=== PATIENT | female | born 1995 ===

== ENCOUNTER 2024-09-11 08:47 | Outpatient (AMB) | payer BC, MEDICAID, SELFPAY ==
--- NOTE | 2024-09-11 08:59 | GYNCLNT_ITS ---
Vital Signs 09/11/24 09:01 Height 1.65 m Height Method Stated Weight 111.811 kg Weight Measurement Method Standing Scale BMI 41.0 BP 114/82 Blood Pressure Source Automatic Cuff Blood Pressure Location Left Upper Arm Position Sitting Respiration 16 Pulse 90 Pulse Source Monitor Temp 97.8 F Temp Source Oral Pulse Oximetry (%) 96 Oxygen Delivery Method Room Air Allergies/Home Meds Allergies & Medications Allergies No Known Allergies Allergy (Verified 09/11/24 09:02) Medication Reconciliation No Known Home Medications 09/11/24 [History Confirmed 09/11/24] Intake Visit Data Collection New Patient or Established: Established Patient (seen at [facility] within 3 years) Reason for Visit:: Menstrual period concerns Seen by Clinical Staff ONLY (RN/MA): No Automotive Finance Manager Required: No Do You Feel Safe at Home: Yes Authorities Contacted: N/A PCP or OBGYN visit in last 3 months: No Hx Now: No Are you currently on any form of Control: No Last menstrual period: 05/22/24 Pain Present Currently: No Pain Scale Used: Rivera-Bustamante/Numerical Pain scale:: 0 Smoking Status Smoking Status: Never smoker Questionnaires Covid-19 Vaccine Questionnaire Has patient been vacinated for Covid-19 Have you been vacinated for Covid-19: No PHQ-9 PHQ-2 Over the last 2 weeks, how often have you been bothered by any of the following problems? 1. Little interest or pleasure in doing things: not at all 2. Feeling down, depressed, or hopeless: not at all Total score: 0 Depression screen completed yes Social History Living Situation History Marital Status: Lives With: Family Housing: House Tobacco History Smoking Status: Never smoker Alcohol History Alcohol Intake: Never Substance Use History Substance Use: no Domestic Abuse History Do You Feel Safe at Home: Yes Past Medical History Past Medical History Have you ever been diagnosed with any of the following: Neurological Problems Cerebrovascular Accident (CVA): No Transient Ischemic Attacks (TIA): No Dementia: No Alzheimer's Disease: No Parkinson's Disease: No Brain Tumor: No Meningitis: No Seizures: No Epilepsy: No Multiple Sclerosis: No Cerebral Palsy: No Amyotrophic Lateral Sclerosis (ALS/Amparo Gehrig's): No Guillain-Boulder Syndrome: No Spina Bifida: No Paralysis: No Peripheral Neuropathy: No Boston's Palsy: No Subdural Hematoma: No Migraine: No Head Trauma: No Spinal Cord Injury: No Traumatic Brain Injury: No Cardiology Problems Myocardial Infarction: No Cardiac Arrhythmia: No Atrial Fibrillation: No Angina: No Heart Murmur: No Coronary Artery Disease: No Atherosclerotic Heart Disease: No Peripheral Vascular Disease: No Hypercholesterolemia: No Aneurysm: No Congestive Heart Failure: No Congenital Heart Disease: No Valvular Heart Disease: No Rheumatic Fever: No Cardiomyopathy: No Edema: No Pericarditis: No Cellulitis: No Deep Vein Thrombosis: No Hypertension: No Hypotension: No Varicose Veins: No Respiratory Problems Chronic Obstructive Pulmonary Disease (COPD): No Asthma: No Stomache/Intestinal Problems Liver Cancer: No Hepatitis: No Cirrhosis: No Pancreatic Cancer: No Genital/Urinary Problems Chronic Kidney Disease: No Renal Disease: No Kidney Stones: No Reproductive Problems Breast Cancer: No Endometriosis: No Musculoskeletal Problems Muscular Dystrophy: No Myasthenia Gravis: No Head,Eye,Nose,Throat Problems Cataracts: No Glaucoma: No Endocrine Problems Diabetes Mellitus Type 1: No Diabetes Mellitus Type 2: No Hypoglycemia: No Greenwood's Syndrome: No Umair's Disease: No Hyperthyroidism: No Hypothyroidism: No Thyroid Cancer: No Parathyroid Disease: No Pituitary Disease: No Systemic Lupus Erythematosus: No Syndrome of Inappropriate Antidiuretic Hormone: No Adrenal Disease: No Graves' Disease: No Blood Problems Anemia: No Leukemia: No Other Problems Hospitalization: No Autoimmune Disease: No Surgical History Angioplasty: No Appendectomy: No History of Present Illness HPI Narrative Patient is a 29-year-old -1-0-1 status post primary at 35 weeks and 2022 for arrest of dilatation at 3 cm. Patient states she came in with premature rupture of membranes we tried to induce her at [facility] for greater than 10 hours she never made progress past 3 cm and a primary was called. Patient had an IUD in place prior to that and was removed and got very quickly she had another ParaGard placed after which was removed in October 2023. Patient is been unable to get since October. Her last menstrual period was April 2024. Patient desires . She has the same partner. No new medical history. She has not had a thyroid or lab work in a while. Patient had an ultrasound last in April 2024. 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 Review of Systems Constitutional Constitutional: Reports system reviewed and no additional complaints, except as documented Comments: No abnormal uterine bleeding no pelvic pain. No abnormal discharge. Irregular menses as above. Patient does report weight gain since her last baby was delivered. Current BMI is 41. Patient states she is prediabetic. Exam Narrative Physical exam: Patient states she had a Pap within the last year. Pelvic exam and Pap smear deferred today as this is a counseling visit. General Limitations: no limitations General Appearance: alert, in no apparent distress, cooperative, healthy appearing and well groomed ENT ENT exam: Present other (Thyroid not enlarged not tender) Neck Neck exam: Present normal inspection and trachea midline Resp Respiratory exam: Present normal lung sounds bilaterally Card Cardiovascular exam: Present regular rate and normal rhythm Assessment & Plan Diagnosis / Problem List (1) Infertility associated with anovulation: Status: Acute Additional Assessment Patient has irregular menses most likely due to anovulation. Patient desires until declines control. She has taken a recent test and it is negative. Additional Plan Plan to check a pelvic ultrasound, check lab work including hemoglobin A1c LH FSH ratio fasting insulin glucose ratio and a prolactin. Will check a test. Then the plan will be to withdraw the patient on Provera. Weight loss was encouraged. Patient might consider Ozempic. Another option to discuss discussed with the patient today would be Provera withdrawal metformin and Clomid. Patient understands she will need a repeat if she does get . She also understands that if she is on the same this will not be continued during as it is not studied well. We will call the patient for follow-up once her lab work and ultrasound are back Office Procedures [facility] Level of Care Nursing/Assessment Patient Status: Established Patient Nursing Assessment/Reassessment: Medication Reconciliation, Update PMH in EMR and Vital Signs Coordination of Care: Complex Care and Chronic Disease 1-5, Consent,records obtained, informed consent, Education Simp Pt/Fam, Lab and Imaging orders and Staff clarify orders Established Patient Charge Established Patient Point Assignment: 100 Established Patient Point Charge: Level 3 (80-115)
[2024-09-11 09:01] VITALS: BP 114/82; PULSE 90; RESP 16; TEMP 36.6; O2SAT 96; BMI 41.0
--- NOTE | 2024-09-11 10:56 | AMB.GYNCLNOT ---
Vital Signs 09/11/24 09:01 09/11/24 10:58 Height 1.65 m Height Method Stated Weight 111.811 kg Weight Measurement Method Standing Scale BMI 41.0 BP 114/82 114/82 Blood Pressure Source Automatic Cuff Blood Pressure Location Left Upper Arm Position Sitting Respiration 16 16 Pulse 90 90 Pulse Source Monitor Temp 97.8 F 97.8 F Temp Source Oral Pulse Oximetry (%) 96 96 Oxygen Delivery Method Room Air Allergies/Home Meds Allergies & Medications Allergies No Known Allergies Allergy (Verified 09/11/24 09:02) Medication Reconciliation No Known Home Medications 09/11/24 [History Confirmed 09/11/24] Intake Visit Data Collection Do You Feel Safe at Home: Yes Smoking Status Smoking Status: Never smoker Questionnaires Covid-19 Vaccine Questionnaire Has patient been vacinated for Covid-19 Have you been vacinated for Covid-19: No PHQ-9 PHQ-2 Over the last 2 weeks, how often have you been bothered by any of the following problems? 1. Little interest or pleasure in doing things: not at all Social History Living Situation History Marital Status: Lives With: Family Housing: House Tobacco History Smoking Status: Never smoker Alcohol History Alcohol Intake: Never Substance Use History Substance Use: no Domestic Abuse History Do You Feel Safe at Home: Yes Past Medical History Past Medical History Have you ever been diagnosed with any of the following: Neurological Problems Cerebrovascular Accident (CVA): No Transient Ischemic Attacks (TIA): No Dementia: No Alzheimer's Disease: No Parkinson's Disease: No Brain Tumor: No Meningitis: No Seizures: No Epilepsy: No Multiple Sclerosis: No Cerebral Palsy: No Amyotrophic Lateral Sclerosis (ALS/Amparo Gehrig's): No Guillain-Bulan Syndrome: No Spina Bifida: No Paralysis: No Peripheral Neuropathy: No Boston's Palsy: No Subdural Hematoma: No Migraine: No Head Trauma: No Spinal Cord Injury: No Traumatic Brain Injury: No Cardiology Problems Myocardial Infarction: No Cardiac Arrhythmia: No Atrial Fibrillation: No Angina: No Heart Murmur: No Coronary Artery Disease: No Atherosclerotic Heart Disease: No Peripheral Vascular Disease: No Hypercholesterolemia: No Aneurysm: No Congestive Heart Failure: No Congenital Heart Disease: No Valvular Heart Disease: No Rheumatic Fever: No Cardiomyopathy: No Edema: No Pericarditis: No Cellulitis: No Deep Vein Thrombosis: No Hypertension: No Hypotension: No Varicose Veins: No Respiratory Problems Chronic Obstructive Pulmonary Disease (COPD): No Asthma: No Stomache/Intestinal Problems Liver Cancer: No Hepatitis: No Cirrhosis: No Pancreatic Cancer: No Genital/Urinary Problems Chronic Kidney Disease: No Renal Disease: No Kidney Stones: No Reproductive Problems Breast Cancer: No Endometriosis: No Musculoskeletal Problems Muscular Dystrophy: No Myasthenia Gravis: No Head,Eye,Nose,Throat Problems Cataracts: No Glaucoma: No Endocrine Problems Diabetes Mellitus Type 1: No Diabetes Mellitus Type 2: No Hypoglycemia: No Yue's Syndrome: No Mcminn's Disease: No Hyperthyroidism: No Hypothyroidism: No Thyroid Cancer: No Parathyroid Disease: No Pituitary Disease: No Systemic Lupus Erythematosus: No Syndrome of Inappropriate Antidiuretic Hormone: No Adrenal Disease: No Graves' Disease: No Blood Problems Anemia: No Leukemia: No Other Problems Hospitalization: No Surgical History Angioplasty: No Appendectomy: No Assessment & Plan Additional Plan Follow Up: 2 Months (call for appointment) Office Procedures OB Clinic LOC & Office Proc's Nursing/Assessment Patient Status: Established Patient OB Clinic Nursing Assessment: Medication Reconciliation, Update PMH in EMR and Vital Signs OB Clinic Coordination of Care: Complex Care and Chronic Disease 1-5, Consent,records obtained, informed consent, Education Simp Pt/Fam and Lab and Imaging orders Established Patient Charge Established Patient Point Assignment: 90 Established Patient Point Charge: EP Level 3 (80-115)
== END 2024-09-11 09:38 | disposition home or self-care (01) ==
LOC: HODSOBC 08:47
PROVIDERS: PCP Physician Assistant; Supervising Provider Obstetrics & Gynecology; Visit Provider Obstetrics & Gynecology
DX: N97.0 Female infertility associated with anovulation (principal)
CPT/HCPCS: 99213; G0463